=== PATIENT | male | born 1940 | race Caucasian/White ===

== ENCOUNTER 2021-04-24 02:27 | Emergency (ER) | payer MEDICARE, OTHER, SELFPAY ==
[2021-04-24 02:38] VITALS: BP 193/88; PULSE 65; RESP 18; TEMP 36.6; O2SAT 95; BMI 27.2
--- NOTE | 2021-04-24 04:56 | ED_ITS ---
HPI - Extremity Problem General Chief complaint: Extremity Problem,Nontraumatic Stated complaint: Concerning Spot on right leg with lump Time Seen by Provider: 04/24/21 04:50 Source: patient Mode of arrival: Ambulatory Limitations: no limitations History of Present Illness HPI Narrative: 80-year-old gentleman with a long cardiac history presents with a less than 1 cm cystic lesion on his right anterior thigh that somewhat irritating and he wanted further evaluated. It has been there for an extended period of time, is not red, not draining freely mobile. He has no other complaints or concerns at this time Related Data Home Medications Medication Instructions Recorded Confirmed aliskiren 150 1 tab PO Q DAY #0 01/31/12 mg-hydrochlorothiazide 25 mg tablet (Tekturna HCT) Allergies Allergy/AdvReac Type Severity Reaction Status Date / Time [id number] Reductase AdvReac Verified 04/24/21 02:38 Inhibitor Review of Systems Review of Systems Narrative: Remainder of complete review of systems is otherwise unremarkable except for that included in the HPI. Patient History Medical History (Updated 04/24/21 @ 23:20 by Adele Cam MD) Coronary artery disease Social History Smoking Status: Never smoker Smoking Status: Never smoker alcohol intake frequency: holidays/special occasions only Substance Use Type: does not use Exam Narrative Exam Narrative: General: Alert appropriate in no acute distress Respiratory: Able to speak in full sentences, no obvious respiratory distress Skin: No obvious rashes, warm and dry Neurologic: Grossly intact no obvious asymmetries or abnormalities Psych: appropriate insight and affect, cooperative Extremity: Less than 1 cm cyst subcutaneous anterior right thigh. This is not a sebaceous cyst, it is not an abscess it is not draining or red. It is freely mobile. Initial Vital Signs Initial Vital Signs: Vital Signs Temperature 97.8 F 04/24/21 02:38 Pulse Rate 65 04/24/21 02:38 Respiratory Rate 18 04/24/21 02:38 Blood Pressure 193/88 H 04/24/21 02:38 Pulse Oximetry 95 04/24/21 02:38 Course Vital Signs Vital signs: Vital Signs - 8 hr 04/24/21 02:38 Temperature 97.8 F Pulse Rate 65 Respiratory Rate 18 Blood Pressure 193/88 H Pulse Oximetry 95 MDM - Extremity (Nontraumatic) MDM Narrative Medical decision making narrative: 80-year-old gentleman with small skin irritation right anterior thigh that is a superficial cyst, not infected, freely mobile, reassurance is given. Told him if it bothered him that removing this would be a simple in office procedure for either his primary care physician or director talent management. He is safe for home discharge Discharge Plan Departure Patient Disposition: Home Clinical Impression: Cyst of skin and subcutaneous tissue Instructions: Epidermal Cyst Activity Restrictions/Additional Instructions: Thank you for coming in tonight This is a small cyst just under the skin. It is not a cancer, infection or blood clot and it is not life-threatening. You likely bumped or hit the area to cause some minor irritation and then rubbing at it keeps that irritated. When you get back home if you would like to have this removed, talked your primary care provider. It it could be removed in a simple office procedure if you would like to do that I wish you the best Prescriptions: No Action aliskiren-hydrochlorothiazide [Tekturna HCT] 150 MG/25 MG tablet 1 tab PO Q DAY Qty: 0 RF: 0
[2021-04-24 05:13] VITALS: BP 182/88; PULSE 57; RESP 17; O2SAT 97
== END 2021-04-24 05:13 | disposition home or self-care (01) ==
PROVIDERS: Emergency Provider Emergency Medicine
DX: L72.9 Follicular cyst of the skin and subcutaneous tissue, unspecified (principal)
CPT/HCPCS: 99281

== ENCOUNTER 2022-06-25 15:04 | Emergency (ER) | payer MEDICARE, OTHER, SELFPAY ==
[2022-06-25 15:21] VITALS: BP 138/78; PULSE 72; RESP 16; TEMP 36.6; O2SAT 96; BMI 28.4
--- NOTE | 2022-06-25 15:26 | DI.RAD.S_ITS ---
PROCEDURE: XR FINGER LT MIN 2V INDICATIONS: yamel rose took part of tip off of finger TECHNIQUE: AP hand, 2 views of the left middle/3rd finger(s) acquired. COMPARISON: None. 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 Possible nondisplaced fracture involving the distal aspect of the left 3rd finger distal phalanx. Soft tissues: No suspicious soft tissue calcifications. Soft tissue injury over the distal tip of the left 3rd finger. No radiopaque soft tissue foreign body seen. IMPRESSION: Soft tissue defect involving the distal tip of the left 3rd finger without radiopaque soft tissue foreign bodies. Possible nondisplaced fracture involving the distal tuft of the 3rd finger distal phalanx. Dictated by: Chang Everett M.D. on 06/25/2022 at 15:40 Approved by: Chang Everett M.D. on 06/25/2022 at 15:42
--- NOTE | 2022-06-25 16:45 | ED_ITS ---
HPI - Wound/Laceration <Amando Burkett PA-C - Last Filed: 06/25/22 17:44> General Chief Complaint: Wound/Laceration Stated Complaint: Finger lac Time Seen by Provider: 06/25/22 15:55 Mode of arrival: Family Vehicle History of Present Illness HPI narrative: Patient is a 2-year-old male who reports to the emergency room today with complaint of a cut to his left middle finger. States he was working in his yard today at about 3:00 a.m. and was using his electric rose and cut the tip his finger. States he had moderate bleeding from it and that the bleeding stopped after he wrapped it. Denies any other concerns at this time. Admits to not having a tetanus shot in last 10 years. Related Data Home Medications Medication Instructions Recorded Confirmed aliskiren 150 1 tab PO Q DAY ##0 01/31/12 mg-hydrochlorothiazide 25 mg tablet (Tekturna HCT) Previous Rx's Medication Instructions Recorded cephalexin 500 mg capsule 500 mg PO QID #20 caps 06/25/22 Allergies Allergy/AdvReac Type Severity Reaction Status Date / Time Fxzuyvo-UYF-KxA Reductase AdvReac Verified 06/25/22 15:24 Inhibitor [Vdiajyf-Pvj-Vxh Reductase Inhibitor] Review of Systems <Amando Burkett PA-C - Last Filed: 06/25/22 17:44> Review of Systems Narrative: R.O.S.: General: No fever, chills or fatigue. Cardiovascular: No chest pain or palpitations Respiratory: No S.O.B. HEENT: No congestion, ear pain, rhinorrhea, sore throat or tinnitus Gastrointestinal: No nausea or vomiting : No urinary concerns Skin: Cut to left middle finger today at about 3:00 a.m.. Musculoskeletal: No pain in muscles or joints, no limitation of range of motion, no paresthesia or numbness. ?? Neurological: Awake, alert and in not apparent distress. No Headaches, changes in vision or other related neurological concerns. Patient History <Amando Burkett PA-C - Last Filed: 06/25/22 17:44> Medical History (Updated 06/25/22 @ 17:38 by Amando Burkett PA-C) Coronary artery disease Social History Smoking Status: Never smoker Smoking Status: Never smoker alcohol intake frequency: holidays/special occasions only Substance Use Type: does not use Exam <Amando Burkett PA-C - Last Filed: 06/25/22 17:44> Narrative Exam Narrative: Physical Exam: ? General: normal appearance, well developed, well nourished, alert, and awake. Not in acute distress. ? Head: Normocephalic, no lesions. Chest: Lungs CTAB, no rales, rhonchi or wheezes. ?? Heart: RRR, no murmurs, rubs or gallops. Eyes: PERRLA, EOM's full, conjunctivae clear. ? Neuro: Physiological, no localizing findings, CN3-12 intact. ?? Extremities: Warm, well perfused, FROM, no deformities, no edema. ?? Skin: Patient has a an avulsion laceration to the distal tip of left middle finger. The area has mild bleeding with minimal erythema. ? PSYCHIATRIC: The mood is good, no blunted affect. Speech is clear. Thought process is linear, thought content is appropriate. The voice is without significant inflection. Gastrointestinal: Soft; NT; ND; Pos BS with Neg. rebound tenderness. No scars or major deformities noted on Visual Inspection. Initial Vital Signs Initial Vital Signs: Vital Signs Temperature 97.9 F 06/25/22 15:21 Pulse Rate 72 06/25/22 15:21 Respiratory Rate 16 06/25/22 15:21 Blood Pressure 138/78 06/25/22 15:21 Pulse Oximetry 96 06/25/22 15:21 Oxygen Delivery Method 06/25/22 15:21 <Aung Yang MD - Last Filed: 06/28/22 10:52> Initial Vital Signs Initial Vital Signs: Vital Signs Temperature 97.9 F 06/25/22 15:21 Pulse Rate 72 06/25/22 15:21 Respiratory Rate 16 06/25/22 15:21 Blood Pressure 138/78 06/25/22 15:21 Pulse Oximetry 96 06/25/22 15:21 Oxygen Delivery Method 06/25/22 15:21 Course <Amando Burkett PA-C - Last Filed: 06/25/22 17:44> Orders Ordered: Discontinued Medications Diphtheria/Tetanus/Acell Pertussis (Tet,Diph,Pertuss(Acell),Vac/Pf 0.5 Ml Syringe) 0.5 ml IM .ONCE ONE Stop: 06/25/22 17:26 Last Admin: 06/25/22 17:35 Dose: 0.5 ml Documented By: CTS Neomycin/Polymyxin/Bacitracin (Neomycin/Polymyxin/Bacitra Ud Oint) 1 each TOP NOW ONE Stop: 06/25/22 17:23 Last Admin: 06/25/22 17:25 Dose: 1 each Documented By: KB Vital Signs Vital signs: Vital Signs - 8 hr 06/25/22 15:21 Temperature 97.9 F Pulse Rate 72 Respiratory Rate 16 Blood Pressure 138/78 Pulse Oximetry 96 Oxygen Delivery Method Room Air <Aung Yang MD - Last Filed: 06/28/22 10:52> Orders Ordered: Discontinued Medications Diphtheria/Tetanus/Acell Pertussis (Tet,Diph,Pertuss(Acell),Vac/Pf 0.5 Ml Syringe) 0.5 ml IM .ONCE ONE Stop: 06/25/22 17:26 Last Admin: 06/25/22 17:35 Dose: 0.5 ml Documented By: CTS Neomycin/Polymyxin/Bacitracin (Neomycin/Polymyxin/Bacitra Ud Oint) 1 each TOP NOW ONE Stop: 06/25/22 17:23 Last Admin: 06/25/22 17:25 Dose: 1 each Documented By: KB Vital Signs Vital signs: Vital Signs - 8 hr 06/25/22 15:21 Temperature 97.9 F Pulse Rate 72 Respiratory Rate 16 Blood Pressure 138/78 Pulse Oximetry 96 Oxygen Delivery Method Room Air MDM - Wound/Laceration <Amando Burkett PA-C - Last Filed: 06/25/22 17:44> Imaging Data Extremity x-ray #1: Radiologist's Impression: PROCEDURE:? XR FINGER LT MIN 2V ? INDICATIONS:? blueprint trimmer took part of tip off of finger ? TECHNIQUE:? AP hand, 2 views of the left middle/3rd finger(s) acquired.? ? COMPARISON:? None. ? FINDINGS:? ? Bones:? 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 Possible nondisplaced fracture involving the distal aspect of the left 3rd finger distal phalanx. ? Soft tissues:? No suspicious soft tissue calcifications.? Soft tissue injury over the distal tip of the left 3rd finger.? No radiopaque soft tissue foreign body seen.? ? IMPRESSION:? Soft tissue defect involving the distal tip of the left 3rd finger without radiopaque soft tissue foreign bodies.? Possible nondisplaced fracture involving the distal tuft of the 3rd finger distal phalanx. ? ? Dictated by: Chang Everett M.D. on 06/25/2022 at 15:40 ? ? Approved by: Chang Everett M.D. on 06/25/2022 at 15:42 ? MDM Narrative Medical decision making narrative: Patient is a 82-year-old male presents to the emergency room today with an avulsion laceration to distal left middle finger. X-ray impression of possible nondisplaced fracture involving the distal tuft of the 3rd finger distal phalanx. Discussed this patient with we also evaluated patient and agrees to apply dressing and have the patient follow-up with ortho. Antibiotics also given and patient agrees with plan. Discharge Plan Departure Patient Disposition: Home Clinical Impression: Avulsion of skin Instructions: DI for Laceration Repair Activity Restrictions/Additional Instructions: *You have been diagnosed with an avulsion fracture to your left middle finger. I applied a dressing given instructions for care and suggested follows. Have also order antibiotics as a prophylaxis for infection and suggested to take the meds as ordered. I also suggest to follow up with Ortho next week. The ortho provider is Dr. Garcia in their phone number is [phone]. Also suggest she return to the emergency room if any emergent concerns arise. [ ] *What to do: *Please continue to take your regular medications as directed. [ ] New medication prescriptions sent to your pharmacy: [ ] [x] New medication written as a paper prescription [ ] No new medications given *Please follow up with your primary care provider in 2-3 days, call for an appointment. Let them know you were seen in the Emergency Department and that we ask that you be seen in follow up. We will electronically transmit a record of today's note if your PCP is in our system *If you do not have a primary care provider please contact the [facility] Resource line at [phone]. They will ask some questions about your medical history and help get you set up with a doctor in the community. *Return to Emergency Department if you should have any new, worsening or concerning symptoms, such as [fever greater than 101 F, shaking chills, worsening pain, persistent vomiting or other bothersome symptoms] Prescriptions: New cephalexin 500 mg capsule 500 mg PO QID Qty: 20 0RF No Action aliskiren-hydrochlorothiazide [Tekturna HCT] 150 MG/25 MG tablet 1 tab PO Q DAY Qty: 0 Visit Report Forms: Patient Portal/API <Aung Yang MD - Last Filed: 06/28/22 10:52> Cosign ED Attending Coskelsiature Attestation: I personally evaluated and examined the patient and agree with the assessment, treatment plan, and disposition of the patient as recorded by the APC.
[2022-06-25] MEDS: NEOMYCIN/POLYMYXIN/BACITRA UD OINT 1 EACH TOP (17:25)
[2022-06-25] MEDS: TET,DIPH,PERTUSS(ACELL),VAC/PF 0.5 ML SYRINGE IM (17:35)
== END 2022-06-25 17:45 | disposition home or self-care (01) ==
PROVIDERS: Emergency Provider Physician Assistant
DX: S61.213A Laceration without foreign body of left middle finger without damage to nail, initial encounter (principal); W29.3XXA Contact with powered garden and outdoor hand tools and machinery, initial encounter; Z23 Encounter for immunization
CPT/HCPCS: 73140; 90471; 99283; 99284; 90715